=== PATIENT | female | born 1975 | race Caucasian/White ===

== ENCOUNTER → 2021-08-25 12:46 | Outpatient (CLI) | payer SELFPAY ==
--- NOTE | 2021-08-25 13:16 | CA_ITS ---
APPROVED REPORT EXAM: Comprehensive 2D, Doppler, and color-flow Echocardiogram Sand Bobber: Barby Valdes CRT Ht: 5 ft 10 in Wt: 211lbs BSA: 2.14 BP: 124/94 mmHg Indications: CP, right sided numbness, edema, sob 2D Dimensions LVOT 1.95 cm (M/F) 1.5-2.5 LA Volume 35.10 mL LA Volume Index 16.40 mL/m2 (M/F) 16-34 M-Mode Dimensions RVDd 2.28 cm (0.9-2.6) LA Diam 3.86 cm (1.9-4.0) LVDd 4.94 cm (3.5-5.7) Ao Diam 3.20 cm (2.0-3.7) LVDs 3.08 cm (3.5-5.7) IVSd 1.48 cm (0.6-1.1) PWd 0.60 cm (0.6-1.1) EF (Teich) 67.60% FS 37.70% EDV (Teich) 115.00 mL TAPSE 2.74 (<1.7) ESV (Teich) 37.30 mL LV Diastology E Decel Time 230.00 (160-240 msec) E/A Ratio 1.01 MED E' 9.70 (< 7 cm/sec) MED A' 13.00 cm/s E'/MED E' Ratio 7.61 (>14) LAT E' 11.10 (<10 cm/sec) LAT A' 12.10 cm/s E/LAT E' Ratio 6.65 (>14) Aortic Valve AO Peak GR. 8.20 mmHg Mitral Valve MV A Velocity 73.00 (40-130 cm/s) E/A Ratio 1.01 MV Decel. Time 230.00 (160-240 ms) Pulmonary Valve PV Peak Velocity 143.00 (50-150 cm/s) Tricuspid Valve TR P. Velocity 205.00 cm/s RAP Estimate 10.00 mmHg RVSP 26.80 mmHg Left Ventricle Left atrium normal size, left ventricle is normal size, there is no concentric left ventricular hypertrophy, estimated ejection fraction 55% with no regional wall motion abnormality, diastolic parameters are within normal range. Right Ventricle Right atrium and right ventricle are normal size and contractility. Aortic Valve Aortic valve is grossly normal there is no aortic stenosis or aortic insufficiency. Mitral Valve Mitral valve is grossly normal, there is trace mitral regurgitation. Tricuspid Valve Tricuspid grossly normal, there is trace tricuspid regurgitation, tricuspid regurgitation jet velocity is inadequate for calculation of the right ventricular systolic pressure. Pulmonic Valve Pulmonic valve is poorly visualized. Great Vessels Aortic root is normal size. Inferior vena cava is normal size with normal inspiratory collapse. Pericardium No significant pericardial effusion noted. Conclusion 1. Normal left ventricular size, preserved left ventricular systolic function, estimated ejection fraction 55% with no regional wall motion abnormality, diastolic parameters are within normal range. 2. Trace mitral and tricuspid regurgitation. 3. No significant pericardial effusion noted. 4. Inferior vena cava is normal size with normal inspiratory collapse. Electronically signed by : Evin Zamora MD 08/25/2021 18:34:32
[2021-08-25 13:26] LABS: Basophils % 0.4 % (0.1-2.0); Eosinophils # 0.1 K/mm3 (0.0-0.4); Eosinophils % 1.2 % (0.1-12.0); Hematocrit 43.7 % (37.0-47.0); Hemoglobin 15.3 g/dL (12.2-16.2); Lymphocytes # 1.6 K/mm3 (0.7-4.5); Lymphocytes % 31.8 % (10-50); Mean Corpuscular Hemoglobin 31.1 pg (27.0-31.2); Mean Corpuscular Volume 88.7 fl (81-99); Mean Platelet Volume 9.1 fl (7.4-10.4); Monocytes # 0.3 K/mm3 (0.1-1.0); Monocytes % 5.6 % (1.7-9.3); Neutrophils % 61.1 % (37.0-80.0); Platelet Count 197 K/mm3 (142-424); Red Blood Count 4.93 M/mm3 (4.20-5.40); Red Cell Distribution Width 12.2 % (11.5-17.5); White Blood Count 4.9 K/mm3 (4.8-10.8)
[2021-08-25 13:50] LABS: Alanine Aminotransferase 17 U/L (12-78); Albumin Level 4.6 g/dl (3.5-5.0); Alkaline Phosphatase 62 U/L (38-126); Anion Gap 9.3 mEq/L (5-15); Aspartate Amino Transferase 24 U/L (14-36); Bilirubin,Indirect 0.4 mg/dL (0.0-0.9); Bilirubin,Total 0.4 mg/dl (0.2-1.3); Bilirubin,Unconjugated 0.6 mg/dL (0.0-1.1); Blood Urea Nitrogen 11 mg/dl (7-17); Calcium 9.5 mg/dl (8.4-10.2); Carbon Dioxide 30 mmol/L (22.0-30.0); Chloride 103 mmol/L (98-107); Cholesterol 207 mg/dl (140-200); Estimated Glomerular Filt Rate 77 ml/min (>60); GFR (African American) 93 ML/MIN (>60); Glucose 106 mg/dl (74-100); HDL Cholesterol 68 mg/dl (40-60); Potassium 4.3 mmoL/L (3.5-5.1); Sodium 138 mmol/L (136-145); Total Protein,Serum 7.3 g/dl (6.3-8.2); Triglycerides 67 mg/dl (30-150); VLDL Cholesterol 13 mg/dL (0-40)
[2021-08-25 14:01] LABS: Direct LDL Cholesterol 80.67 mg/dL (100-129)
[2021-08-25 14:21] LABS: Thyroid Stimulating Hormone 1.88 uIU/mL (0.465-4.68)
[2021-08-25 15:39] LABS: Vitamin B12 885 pg/mL (239-931)
[2021-08-25 16:56] LABS: Folate > 20.00 ng/mL
== END ==
PROVIDERS: PCP Nurse Practitioner Family; Visit Provider Internal Medicine
DX: R06.00 Dyspnea, unspecified (principal); R07.89 Other chest pain; R00.2 Palpitations; Q79.60 Ehlers-Danlos syndrome, unspecified; D68.51 Activated protein C resistance; G45.9 Transient cerebral ischemic attack, unspecified; I63.9 Cerebral infarction, unspecified; R20.0 Anesthesia of skin; R20.2 Paresthesia of skin
CPT/HCPCS: 36415; 80048; 80061; 80076; 82607; 82746; 84439; 84443; 85025; 93306

== ENCOUNTER 2021-08-29 07:21 | Day surgery (SDC) | payer SELFPAY ==
[2021-08-29 07:30] VITALS: BMI 30.2
[2021-08-29 07:47] LABS: Coronavirus 19, PCR Not Detected (NotDetected); Influenza A, PCR Not Detected (NotDetected); Influenza B, PCR Not Detected (NotDetected)
--- NOTE | 2021-08-29 08:06 | HMH.ANESCL ---
[facility] Anesthesia Checklist - Patient Identification Patient Identification: Arm Band - Structural Data Admitted From: Home Planned Operative Procedure/s: LONNIE Consent for Planned Operative Procedure(s) Verified: Yes - NPO Status Verified Time NPO: 00:00 - Airway Assessment C-Spine Mobility Assessed: Yes TMJ Mobility Assessed: Yes Dentition: Good Dentition - Neurological Assessment Level of Consciousness: Awake Hx Seizures: No Numbness or tingling in extremities: No - Anesthesia Plan Anesthesia Risk discussed: Yes Anesthesia Plan: Verified ASA Class: III Anesthesia Type: MAC 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
--- NOTE | 2021-08-29 08:14 | CA_ITS ---
APPROVED REPORT EXAM: Comprehensive 2D, Doppler, and color-flow Echocardiogram Mechanical Estimator: RT Allison(R) Ht: 5 ft 10 in Wt: 200lbs BSA: 2.09 BP: 159/52 mmHg Indications: Cryptogenic stroke, CP, MODI, gavin danlos syndrome, TIA Procedure After obtaining informed consent, patient underwent transesophageal echo in the [facility]. Type of Sedation : Conscious Sedation Sedation was administered by Houston Vasquez C.R.N.A. Transesophageal probe was inserted and advanced into esophagus without difficulty by Dr. Connie Crawford. The LONNIE was performed without complications. Throughout the procedure, the blood pressure, pulse oximetry, cardiac rhythm, and rate were monitored. The patient tolerated the procedure without adverse effects. Recovery from conscious sedation was uneventful and vital signs were stable. Left Ventricle Left ventricle is normal size present left ventricular systolic function, estimated ejection fraction 55% with no regional wall motion abnormality in the obtained views. Right Ventricle Right ventricle is normal size and contractility. Atria Left atrium is normal size, left atrial appendage is free of thrombus. There is good appendage flow by spectral Doppler. Right atrium is normal size Intra-atrial septum is intact, there is no flow across the interatrial septum, agitated saline contrast study did not identify intracardiac shunt. Aortic Valve Aortic valve is grossly normal there is no aortic stenosis or aortic insufficiency. Mitral Valve Mitral valve grossly normal, there is trace mitral regurgitation. Tricuspid Valve Tricuspid valve grossly normal, there is trace tricuspid regurgitation. Pulmonic Valve Pulmonic valve is grossly normal. Great Vessels Aortic root is normal size. Ascending, arch and descending thoracic aorta is normal Inferior vena cava is poorly visualized. Pericardium No significant pericardial effusion noted. Conclusion 1. Normal left ventricular size present left ventricular systolic function. 2. Trace mitral and tricuspid regurgitation. 3. Agitated saline contrast study did not identify intracardiac shunt. 4. No obvious cardiac source of emboli identified from the study. Electronically signed by : Evin Zamora MD 08/29/2021 13:20:33
[2021-08-29 08:30] VITALS: BP 139/65; PULSE 63; RESP 18; O2SAT 98
[2021-08-29 08:48] VITALS: PULSE 63
[2021-08-29 08:58] VITALS: BP 126/75; PULSE 51; RESP 18; O2SAT 100
[2021-08-29 09:02] VITALS: PULSE 51
== END 2021-08-29 10:02 | disposition home or self-care (01) ==
PROVIDERS: Visit Provider Internal Medicine Cardiovascular Disease
DX: R00.2 Palpitations (principal); D68.51 Activated protein C resistance; I63.9 Cerebral infarction, unspecified; Q79.60 Ehlers-Danlos syndrome, unspecified; R06.00 Dyspnea, unspecified; R07.89 Other chest pain; G45.8 Other transient cerebral ischemic attacks and related syndromes
CPT/HCPCS: 93312; C9803; U0003; U0005

== ENCOUNTER → 2021-09-01 10:26 | Outpatient (CLI) | payer SELFPAY ==
--- NOTE | 2021-09-01 10:27 | MR_ITS ---
FINAL REPORT CLINICAL HISTORY: TIA RIGHT SIDE BODY NUMBNESS/WEAKNESS SINCE July, LOW HEART RATE, SHORT TERM MEMORY LOSS. FINDINGS: Multiplanar MR imaging of the brain was performed without contrast. There is no evidence of intracranial hemorrhage or mass. The ventricular size is normal. There is no evidence of shift of the midline structures. No area of restricted diffusion is identified. The posterior fossa and brainstem have an unremarkable appearance. Normal major vessel vascular flow voids are seen. IMPRESSION: Unremarkable brain with no focal abnormality identified. Reviewed, Interpreted and Dictated by Sharad Briscoe III, MD Transcribed by Monica Hameed Authenticated and [facility]
== END ==
PROVIDERS: PCP Nurse Practitioner Family; Visit Provider Internal Medicine
DX: G45.9 Transient cerebral ischemic attack, unspecified (principal); D68.51 Activated protein C resistance; I63.9 Cerebral infarction, unspecified; Q79.60 Ehlers-Danlos syndrome, unspecified; R00.2 Palpitations; R06.00 Dyspnea, unspecified; R07.89 Other chest pain; R20.0 Anesthesia of skin; R20.2 Paresthesia of skin
CPT/HCPCS: 70551

== ENCOUNTER → 2021-09-11 08:54 | Outpatient (CLI) | payer OTHER, SELFPAY ==
--- NOTE | 2021-09-11 08:54 | CT_ITS ---
FINAL REPORT TECHNIQUE: Thin section axial CT with IV contrast supplemented with multiplanar reconstruction under CT angiogram protocol. This study was performed with techniques to keep radiation doses as low as reasonably achievable (ALARA). Individualized dose reduction techniques using automated exposure control or adjustment of mA and/or kV according to the patient''s size were employed. NASCET criteria was utilized during interpretation. CLINICAL HISTORY: eval for stenosis, aneurysm, dizziness, blurred vision, chest pain, ongoing for weeks now. FINDINGS: Aortic arch: Arch shows no significant narrowing. Great vessel origins are widely patent. Right carotid: No significant stenosis is seen of the cervical common or internal carotid artery. Left carotid: No significant stenosis is seen of the cervical common or internal carotid artery. Vertebral: Left vertebral artery is dominant. No significant stenosis is present. IMPRESSION: No evidence of of significant stenosis. Reviewed, Interpreted and Dictated by Sharad Briscoe III, MD Transcribed by Daisy Blandon Authenticated and [facility]
--- NOTE | 2021-09-11 08:54 | XR_ITS ---
FINAL REPORT CLINICAL HISTORY: neck pain, numbness and tingling FINDINGS: CERVICAL SPINE Seven views demonstrate no acute fracture. Mild degenerative change with osteophytes are seen at C5-6 and C6-7. There is moderate right neural foraminal narrowing at C6-7. There is mild left neural foraminal narrowing at C5-6 and C6-7. There is no abnormal movement with flexion and extension maneuvers. IMPRESSION: Degenerative changes as detailed above. Reviewed, Interpreted and Dictated by Sharad Briscoe III, MD Transcribed by Daisy Blandon Authenticated and [facility]
--- NOTE | 2021-09-11 08:54 | CT_ITS ---
FINAL REPORT TECHNIQUE: Thin section axial CT with IV contrast supplemented with multiplanar reconstruction under CT angiogram protocol. 3-D reconstructions were performed. This study was performed with techniques to keep radiation doses as low as reasonably achievable (ALARA). Individualized dose reduction techniques using automated exposure control or adjustment of mA and/or kV according to the patient''s size were employed. CLINICAL HISTORY: eval for stenosis, aneurysm, dizziness, blurred vision, chest pain, ongoing for weeks now. FINDINGS: The distal vertebral, basilar and distal internal carotid arteries have an unremarkable appearance. No aneurysm is seen. Major intracranial vessels are patent without significant stenosis. IMPRESSION: No evidence of significant stenosis or major branch occlusion. Reviewed, Interpreted and Dictated by Sharad Briscoe III, MD Transcribed by Daisy Blandon Authenticated and [facility]
== END ==
PROVIDERS: PCP Nurse Practitioner Family; Visit Provider Specialist
DX: D68.51 Activated protein C resistance (principal); Q79.60 Ehlers-Danlos syndrome, unspecified; R20.0 Anesthesia of skin; R29.90 Unspecified symptoms and signs involving the nervous system; M54.2 Cervicalgia
CPT/HCPCS: 70496; 70498; 72052; Q9967

== ENCOUNTER 2021-10-01 12:05 | Emergency (ER) | payer SELFPAY ==
[2021-10-01] VITALS (10 sets, daily range): BP systolic 98–142; BP diastolic 61–100; PULSE 67–80; RESP 15–20; TEMP 37.1; O2SAT 96–100; BMI 27.8
--- NOTE | 2021-10-01 12:07 | ECG_ITS ---
APPROVED REPORT Exam: Resting ECG HR:76 bpm ECG Measurements Heart Rate 76 AXES NV 148 P 58 QRSd 105 QRS -3 QT 365 T 12 QTc 396 Conclusion SINUS RHYTHM NONSPECIFIC ST & T-WAVE ABNORMALITY BORDERLINE ECG UNCONFIRMED REPORT Electronically signed by : Tyree Roque MD 10/01/2021 21:01:01
--- NOTE | 2021-10-01 12:11 | PC.NURSE ---
ED MD AT BEDSIDE FOR EVALUATION
--- NOTE | 2021-10-01 12:20 | PC.NURSE ---
Assisted patient to the bathroom
[2021-10-01 12:29] LABS: Chloride 99 mmol/L (98-107); Potassium 3.1 mmoL/L (3.5-5.1); Sodium 137 mmol/L (136-145)
[2021-10-01 12:29] LABS: Microscopic, Urine URINE MICROSCOPIC (MICROSCOPIC)
[2021-10-01 12:30] LABS: Basophils % 0.7 % (0.1-2.0); Eosinophils # 0.1 K/mm3 (0.0-0.4); Eosinophils % 1.5 % (0.1-12.0); Hematocrit 46.1 % (37.0-47.0); Lymphocytes # 1.7 K/mm3 (0.7-4.5); Lymphocytes % 28.3 % (10-50); Mean Corpuscular HGB Conc 34.8 g/dL (31.8-35.4); Mean Corpuscular Hemoglobin 30.9 pg (27.0-31.2); Mean Corpuscular Volume 88.9 fl (81-99); Mean Platelet Volume 9.1 fl (7.4-10.4); Monocytes # 0.3 K/mm3 (0.1-1.0); Monocytes % 5.4 % (1.7-9.3); Neutrophils # 3.9 K/mm3 (1.8-7.8); Neutrophils % 64.2 % (37.0-80.0); Platelet Count 250 K/mm3 (142-424); Red Blood Count 5.19 M/mm3 (4.20-5.40); Red Cell Distribution Width 12.5 % (11.5-17.5); White Blood Count 6.1 K/mm3 (4.8-10.8)
[2021-10-01 12:30] LABS: Appearance,Urine CLEAR (Clear); Bilirubin,Urine Negative (Negative); Blood, Urine Negative (Negative); Color,Urine YELLOW (Yellow); Glucose,Urine (UA) Negative (Negative); Ketones,Urine Negative (Negative); Leukocyte Esterase,Urine Negative (Negative); Nitrate,Urine Negative (Negative); Protein,Urine Negative (Negative); Urobilinogen,Urine 0.2 EU/dl (0.2)
--- NOTE | 2021-10-01 12:30 | HMH.EDGENADL ---
ED Disposition Clinical Impression: Nonspecific chest pain, Weakness, Factor 5 Leiden mutation, heterozygous Disposition: Home, Self-Care Condition on Discharge: Good Instructions: DI for Orthostatic Hypotension Referrals: Provider,MD Elizabeth [Primary Care Provider] - Johann Marcelino MD [Staff Physician] - - Critical Care Critical Care Time: No Attestation: On , the high probability of a clinically significant, sudden or life threatening deterioration of the following system(s) required my full and direct attention, intervention and personal management. The time I documented below is in addition to time spent performing reported procedures but includes the following listed in this critical care notation. Medical Decision Making - Medical Records Medical records reviewed: Yes: I reviewed the patient's medical records. - Amilcar Inquiry Pt receiving controlled substance: Yes Amilcar was queried for this patient: Yes Reference #:: [id number] Risks and benefits of using a controlled substance: were discussed with pt by me Vital Signs: 10/01/21 12:05 10/01/21 12:25 10/01/21 12:37 Temperature 98.8 F Temperature Source Oral Pulse Rate 77 77 Pulse Rate [Brachial] 80 Respiratory Rate 18 16 15 Blood Pressure 141/91 H 102/64 L Blood Pressure [Right Arm] 142/100 H Blood Pressure Mean 107 77 Blood Pressure Mean [Right Arm] 114 Blood Pressure Source [Right Arm] Automatic Cuff Blood Pressure Position [Right Arm] Sitting 02 Sat by Pulse Oximetry 100 100 99 Oxygen Delivery Method Room Air 10/01/21 13:07 10/01/21 13:10 10/01/21 13:37 Temperature Temperature Source Pulse Rate 72 72 67 Pulse Rate [Brachial] Respiratory Rate 18 18 20 Blood Pressure 98/61 L 106/61 L 107/73 L Blood Pressure [Right Arm] Blood Pressure Mean 67 69 79 Blood Pressure Mean [Right Arm] Blood Pressure Source [Right Arm] Blood Pressure Position [Right Arm] 02 Sat by Pulse Oximetry 96 96 96 Oxygen Delivery Method 10/01/21 14:37 10/01/21 15:37 Temperature Temperature Source Pulse Rate 78 71 Pulse Rate [Brachial] Respiratory Rate 16 Blood Pressure 106/62 L 106/71 L Blood Pressure [Right Arm] Blood Pressure Mean 73 78 Blood Pressure Mean [Right Arm] Blood Pressure Source [Right Arm] Blood Pressure Position [Right Arm] 02 Sat by Pulse Oximetry 99 98 Oxygen Delivery Method - Lab Data Lab Results 10/01/21 12:12: WBC 6.1, RBC 5.19, Hgb 16.0, Hct 46.1, MCV 88.9, MCH 30.9, MCHC 34.8, RDW 12.5, Plt Count 250, MPV 9.1, Neut % (Auto) 64.2, Lymph % (Auto) 28.3, Sumner % (Auto) 5.4, Eos % (Auto) 1.5, Baso % (Auto) 0.7, Neut # (Auto) 3.9, Lymph # (Auto) 1.7, Sumner # (Auto) 0.3, Eos # (Auto) 0.1, Baso # (Auto) 0.0 10/01/21 12:12: Sodium 137, Potassium 3.1 L, Chloride 99, Carbon Dioxide 29, Anion Gap 12.1, BUN 13, Creatinine 0.90, Estimated Creat Clear 109, Estimated GFR 67, Est GFR ( Amer) 81, Glucose 134 H, Calcium 9.7, Total Bilirubin 0.6, AST 34, ALT 25, Alkaline Phosphatase 62, Total Creatine Kinase 43, Troponin I < 0.01, C-Reactive Protein 2.8, NT-Pro-B Natriuret Pep 28.8, Total Protein 8.1, Albumin 4.8, Globulin 3.3 H, Albumin/Globulin Ratio 1.5, Lipase 95, TSH 1.17, HCG, Quant < 2 10/01/21 12:12: ESR 10 10/01/21 12:20: Urine Color Yellow, Urine Appearance Clear, Urine pH 6.0, Ur Specific [place] 1.010, Urine Protein Negative, Urine Glucose (UA) Negative, Urine Ketones Negative, Urine Blood Negative, Urine Nitrate Negative, Urine Bilirubin Negative, Urine Urobilinogen 0.2, Ur Leukocyte Esterase Negative, Urine RBC None, Urine WBC Occasional, Ur Squamous Epith Cells 3-5, Urine Bacteria Trace, Urine Yeast Occasional Result diagrams: 10/01/21 12:12 10/01/21 12:12 Orders (Tests/Meds): ED MEDICATIONS Generic Name Dose Route Start Last Admin Trade Name Freq PRN Reason Stop Dose Admin Sodium Chloride 10 ml 10/01/21 12:18 Sodium Chloride 0.9% 10ml Flush Syringe IV 10/31
[2021-10-01 12:31] LABS: Alanine Aminotransferase 25 U/L (12-78); Alkaline Phosphatase 62 U/L (38-126); Anion Gap 12.1 mEq/L (5-15); Aspartate Amino Transferase 34 U/L (14-36); Bilirubin,Total 0.6 mg/dl (0.2-1.3); Blood Urea Nitrogen 13 mg/dl (7-17); Carbon Dioxide 29 mmol/L (22.0-30.0); Creatinine Clearance Estimated 109 mL/min (50-200); Estimated Glomerular Filt Rate 67 ml/min (>60); GFR (African American) 81 ML/MIN (>60)
[2021-10-01 12:32] LABS: Albumin Level 4.8 g/dl (3.5-5.0); Albumin/Globulin Ratio 1.5 (1.1-1.8); Calcium 9.7 mg/dl (8.4-10.2); Creatine Kinase 43 U/L (30-135); Globulin 3.3 g/dL (1.3-3.2); Glucose 134 mg/dl (74-100); Lipase 95 U/L (23-300); Total Protein,Serum 8.1 g/dl (6.3-8.2)
--- NOTE | 2021-10-01 12:32 | PC.NURSE ---
PAIN MEDICATION AND PHENERGAN PER EMAR, PT PROVIDED ADDITIONAL WARM BLANKETS AND SOCKS
--- NOTE | 2021-10-01 12:36 | PC.NURSE ---
Patient's family member came out to the nurses station requesting a pillow for the patient. Took pillow to patient and rounded; patient and family member stated they did not need anything else at this time.
[2021-10-01 12:38] LABS: C-Reactive Protein 2.8 mg/L (0-4)
[2021-10-01 12:44] LABS: NT Pro Brain Natriuretic Pep. 28.8 pg/mL (0-125)
[2021-10-01 12:47] LABS: Bacteria,Urine Trace /lpf; WBC,Urine Occasional #/hpf (0-3)
[2021-10-01 12:48] LABS: Yeast,Urine Occasional /lpf
[2021-10-01 12:50] LABS: Troponin I < 0.01 ng/ml (0.00-0.034)
[2021-10-01 12:54] LABS: HCG,Quantitative < 2 mIU/ml (0-5.42)
[2021-10-01 12:55] LABS: Erythrocyte Sedimentation Rate 10 mm/hr (0-20)
[2021-10-01 13:05] LABS: Thyroid Stimulating Hormone 1.17 uIU/mL (0.465-4.68)
--- NOTE | 2021-10-01 13:19 | PC.NURSE ---
ROUNDED ON PT AT THIS TIME, PT SLEEPING SOUNDLY ON LEFT SIDE. NO DISTRESS NOTED. UPDATED ON POC. NO NEEDS AT THIS TIME
--- NOTE | 2021-10-01 13:54 | CT_ITS ---
FINAL REPORT CLINICAL HISTORY: chest pain SINCE POST COVID AT THE END OF JULY 2021 FINDINGS: Thin section axial CT images of the chest were obtained with contrast. Coronal and sagittal re-formatted images were also submitted. This study was performed with techniques to keep radiation doses as low as reasonably achievable (ALARA). Individualized dose reduction techniques using automated exposure control or adjustment of mA and/or kV according to the patient's size were employed. There are large calcified right subcarinal lymph nodes. There is no evidence of pulmonary embolism. There is no evidence of thoracic aortic aneurysm or dissection. There is no evidence of mediastinal or hilar mass or adenopathy. There is no evidence of pulmonary mass or nodule. No localized inflammatory process is seen within the lungs. Limited images of the upper abdomen demonstrate postoperative changes from cholecystectomy. IMPRESSION: No evidence of pulmonary embolism. No mass or localized inflammatory process. Reviewed, Interpreted and Dictated by Sharad Briscoe III, MD Transcribed by Dali Andrade Authenticated and [facility]
--- NOTE | 2021-10-01 13:56 | PC.NURSE ---
Notified radiology of CTA order that was added on; spoke with RT Alicja
--- NOTE | 2021-10-01 15:11 | PC.NURSE ---
AT BEDSIDE TO DISCUSS POC AND RESULTS WITH PT AND
--- NOTE | 2021-10-01 15:50 | PC.NURSE ---
rounded on pt at this time, pt resting in bed. Pt requesting something to drink, asked ER MD, ER MD requested that we waiting and keep pt NPO at this time. Pt verbalized understanding.
--- NOTE | 2021-10-01 15:57 | PC.NURSE ---
on the phone with
--- NOTE | 2021-10-01 15:58 | PC.NURSE ---
on the phone with
[2021-10-01 16:22] LABS: Troponin I < 0.01 ng/ml (0.00-0.034)
--- NOTE | 2021-10-01 16:32 | PC.NURSE ---
pt to restroom via wc with assistance from spouse and tech. no complications
== END 2021-10-01 16:55 | disposition home or self-care (01) ==
PROVIDERS: Emergency Provider Emergency Medicine
DX: R07.9 Chest pain, unspecified (principal); R53.1 Weakness; D68.51 Activated protein C resistance; Z86.16 Personal history of COVID-19; Q79.60 Ehlers-Danlos syndrome, unspecified; Z88.6 Allergy status to analgesic agent; F41.9 Anxiety disorder, unspecified; Z86.718 Personal history of other venous thrombosis and embolism; I10 Essential (primary) hypertension; G43.909 Migraine, unspecified, not intractable, without status migrainosus; R00.2 Palpitations; Z86.73 Personal history of transient ischemic attack (TIA), and cerebral infarction without residual deficits
CPT/HCPCS: 36415; 71275; 80053; 81001; 82550; 83690; 83880; 84443; 84484; 84702; 85025; 85651; 86140; 93005; 96374; 96375; 99284; Q9967